=== PATIENT | female | born 1965 | race Caucasian/White ===

== ENCOUNTER → 2024-06-03 | Emergency (ER) | payer MEDICARE ==
[~2024-06-03] VITALS: Ht 170.2 cm; Wt 81.6 kg
[~2024-06-03] MED LIST: ACETAMINOPHEN ES 500 MG TABLET ONE
[2024-06-03 14:03] VITALS: TEMP 98.5
[2024-06-03] MEDS: ACETAMINOPHEN ES 500 MG TABLET PO ONE (14:43)
[2024-06-03 18:44] VITALS: BP 134/72; O2SAT 96
== END | disposition home or self-care (01) ==
LOC: ER 13:42
DX: M25.552 Pain in left hip (principal); M25.551 Pain in right hip; M25.562 Pain in left knee; M25.561 Pain in right knee; F20.9 Schizophrenia, unspecified; Z88.0 Allergy status to penicillin; Z88.1 Allergy status to other antibiotic agents; Z88.2 Allergy status to sulfonamides; Z88.6 Allergy status to analgesic agent; Z88.8 Allergy status to other drugs, medicaments and biological substances; W01.0XXA Fall on same level from slipping, tripping and stumbling without subsequent striking against object, initial encounter; Y93.89 Activity, other specified; Y92.89 Other specified places as the place of occurrence of the external cause; Y99.8 Other external cause status
CPT/HCPCS: 71045-TC; 72170-TC; 73564-TC